=== PATIENT | male | born 1990 ===

== ENCOUNTER 2017-01-12 20:20 | Emergency (ER) | payer BC ==
--- NOTE | 2017-01-12 20:39 | EDM.PDOC ---
ED HPI ENT - General Stated Complaint: SORE THROAT W/FEVER Time Seen by Provider: 01/12/17 20:30 Source of Information: Reports: Patient History Limitations: Reports: No limitations - History of Present Illness INITIAL COMMENTS - FREE TEXT/NARRATIVE: This 26 yo male patient reports to the ED with a 1 week history of a sore throat and fever. The patient reports he was seen in the clinic on Monday (2 days ago) and was started on Clindamycin. The patient has not had any symptom relief with the antibiotic. The patient reports too much pain to eat much, but has been drinking fluids. Symptom Onset Date: 01/05/17 Timing/Duration: Reports: Constant, Getting worse Severity: severe Location: Reports: throat Quality: Reports: Ache, Sharp Improves with: Reports: Medication (OTC) Worsens with: Reports: Eating Treatments FISH PACKER: Reports: Acetaminophen, Other medication(s) (Clindamycin) - Related Data Allergies/ADRs: Allergies Allergy/AdvReac Type Severity Reaction Status Date / Time No Known Allergies Allergy Verified 01/12/17 20:38 Home Meds: Home Meds Clindamycin HCl 2 cap PO BID 01/12/17 [History] ED ROS ENT - Review of Systems Review Of Systems: ROS reveals no pertinent complaints other than HPI. ED EXAM, ENT - Physical Exam Exam: See Below Exam Limited By: No limitations General Appearance: alert, WD/WN, moderate distress Eye Exam: bilateral eye: EOMI, normal inspection, PERRL Ears: normal external exam, normal canal, hearing grossly normal, normal TMs Nose: normal inspection, normal mucousa, no blood Mouth/Throat: Tonsillar erythema, Tonsillar exudates, Tonsillar swelling Head: atraumatic, normocephalic Neck: normal inspection, full range of motion, lymphadenopathy (L), lymphadenopathy (R) Respiratory/Chest: no respiratory distress, lungs clear, normal breath sounds, no accessory muscle use, chest non-tender Cardiovascular: normal peripheral pulses, regular rate, rhythm, no edema, no gallop, no JVD, no murmur, no rub GI/Abdominal: normal bowel sounds, soft, non tender, no organomegaly, no distention, no abnormal bruit, no mass (Male) Exam: Deferred Rectal (Males) Exam: Deferred Back: normal inspection, full range of motion Extremities: normal inspection, normal range of motion, non-tender, no pedal edema, normal capillary refill Neurological: alert, oriented, CN II-XII intact, normal cognition, normal gait, normal reflexes, no motor/sensory deficits Psychiatric: normal affect, normal mood Skin: Warm, Dry, Intact, Normal color, No rash Lymphatic: no adenopathy Course - Vital Signs Last Recorded V/S: Last Vital Signs Temp 37.4 C 01/12/17 20:28 Pulse 123 H 01/12/17 20:28 Resp 16 01/12/17 20:28 BP 103/72 01/12/17 20:28 Pulse Ox 97 01/12/17 20:28 - Orders/Labs/Meds Orders: Active Orders 24 hr Category Date Time Status CULTURE STREP A CONFIRMATION [] Stat Lab 01/12/17 20:30 Results STREP SCRN A RAPID W CULT CONF [] Stat Lab 01/12/17 20:21 Uncollected Labs: Laboratory Tests 01/12/17 01/12/17 Range/Units 20:40 20:40 WBC 9.5 (5.0-10.0) 10^3/uL RBC 4.46 L (4.6-6.2) 10^6/uL Hgb 13.1 L (14.0-18.0) g/dL Hct 38.8 L (40.0-54.0) % MCV 87.0 (80-100) fL MCH 29.4 (27.0-34.0) pg MCHC 33.8 (33.0-35.0) g/dL Plt Count 255 (150-450) 10^3/uL Neut % (Auto) 33.8 L (42.2-75.2) % Lymph % (Auto) 56.3 H (20.5-50.1) % Milam % (Auto) 9.6 H (2-8) % Eos % (Auto) 0.0 L (1.0-3.0) % Baso % (Auto) 0.3 (0.0-1.0) % Sodium 132 L (135-145) mmol/L Potassium 4.5 (3.6-5.0) mmol/L Chloride 99 L (101-111) mmol/L Carbon Dioxide 24.0 (21.0-31.0) mmol/L Anion Gap 13.5 BUN 9 (7-18) mg/dL Creatinine 0.8 (0.6-1.3) mg/dL Est Cr Clr Drug Dosing 152.24 mL/min Estimated GFR (MDRD) > 60 BUN/Creatinine Ratio 11.25 Glucose 99 (74-105) mg/dL Calcium 8.8 (8.4-10.2) mg/dl Total Bilirubin 0.4 (0.2-1.0) mg/dL AST 79 H (10-42) IU/L ALT 125 H (10-60) IU/L Alkaline Phosphatase 47 (42-121) IU/L Total Protein 7.3 (6.7-8.2) g/dl Albumin 4.1 (3.2-5.5) g/dl Globulin 3.2 Albumin/Globulin Ratio 1.28 Monoscreen Positive Meds: Medications Discontinued Medications Generic Name Dose Route Start Last Admin Trade Name Freq PRN Reason Stop Dose Admin Acetaminophen 650 mg 01/12/17 21:04 01/12/17 21:09 Tylenol PO 01/12/17 21:05 650 mg NOW ONE Administration Departure - Departure Time of Disposition: 21:10 Disposition: Home, Self-Care 01 Condition: fair Clinical Impression: Infectious mononucleosis Qualifiers: Infectious mononucleosis etiology: unspecified organism Infectious mononucleosis complication: without complication Qualified Code(s): B27.90 - Infectious mononucleosis, unspecified without complication Instructions: Infectious Mononucleosis, [id number] Care Plan Goals: The patient was advised of he examination and lab results during the visit. The patient was encouraged to continue to take [id number] medications for temporary symptom relief. The patient should increase his oral fluid intake. If the patient has any additional symptoms or concerns, the patient should follow- up with his primary care facility or return to the emergency department. - My Orders Last 24 Hours: My Active Orders 01/12/17 20:21 STREP SCRN A RAPID W CULT CONF [RM] Stat 01/12/17 20:30 CULTURE STREP A CONFIRMATION [] Stat - Assessment/Plan Last 24 Hours: My Active Orders 01/12/17 20:21 STREP SCRN A RAPID W CULT CONF [RM] Stat 01/12/17 20:30 CULTURE STREP A CONFIRMATION [RM] Stat
[2017-01-12 20:49] VITALS: BP 103/72
[2017-01-12] MEDS ORDERED: Acetaminophen 325 MG Tab PO ONE (21:04)
[2017-01-12 21:08] LABS: CHLORIDE,CL 99 mmol/L (101-111); SODIUM,NA 132 mmol/L (135-145)
== END 2017-01-12 21:26 | disposition home or self-care (01) ==
LOC: DL.ED 20:20
DX: B27.90 Infectious mononucleosis, unspecified without complication (principal)
CPT/HCPCS: 36415; 80053; 85025; 86308; 87081; 87430; 87804; 99283; A9270